=== PATIENT | male | born 1970 | race Caucasian/White ===

== ENCOUNTER 2019-02-24 19:15 | Emergency (ER) | payer MEDICAID ==
[~2019-02-24] VITALS: Ht 165.1 cm; Wt 114.0 kg
[2019-02-24] MEDS ORDERED: SODIUM CHLORIDE 0.9% 1,000 ML IV ONE ×2 (20:00→22:45)
[2019-02-24] MEDS ORDERED: INSULIN REGULAR (HUMULIN R) 300UNITS/3ML IV ONE (20:00)
[2019-02-24 20:14] LABS: BASOPHILS % 0.4 % (0.0-2.0); EOSINOPHILS % 3.8 % (0.0-5.0); HEMOGLOBIN. 13.6 g/dL (14.0-18.0); LYMPHOCYTES % 23.4 % (20.0-50.0); MEAN CORPUSCULAR HEMOGLOBIN 33.7 pg (28.0-32.0); MEAN CORPUSCULAR VOLUME 94.1 fL (80.0-94.0); MEAN PLATELET VOLUME 8.7 fl (7.4-10.4); MONOCYTES % 5.6 % (2.0-8.0); NEUTROPHILS % 66.8 % (40.0-76.0); PLATELET 199 x1000/uL (130-400); RED BLOOD CELL COUNT 4.04 mill/uL (4.7-6.1); RED CELL DISTRIBUTION WIDTH 12.6 % (11.6-14.6)
[2019-02-24] MEDS ORDERED: MORPHINE SULFATE 4 MG/ML CPJ (NOT FOR IM USE) IV ONE (20:15)
[2019-02-24 20:17] LABS: CHLORIDE 104 mEq/L (98-107)
[2019-02-24 20:19] LABS: INR 1.1; PROTHROMBIN TIME 10.9 sec (9.6-11.0)
[2019-02-24] MEDS ORDERED: INSULIN REGULAR (HUMULIN R) UD 100 UNITS/ML SYR IV ONE (22:45)
[2019-02-24] MEDS ORDERED: INSULIN REGULAR (HUMULIN R) 300UNITS/3ML IV NR (23:00)
[2019-02-25] MEDS ORDERED: TRAMADOL 50MG TABLET PO ONE
[2019-02-25 00:49] VITALS: BP 122/76
== END 2019-02-25 00:56 | disposition home or self-care (01) ==
LOC: ER 20:00
DX: F10.129 Alcohol abuse with intoxication, unspecified (principal); E10.65 Type 1 diabetes mellitus with hyperglycemia; N50.819 Testicular pain, unspecified; R03.0 Elevated blood-pressure reading, without diagnosis of hypertension; Y90.0 Blood alcohol level of less than 20 mg/100 ml; Z79.4 Long term (current) use of insulin
CPT/HCPCS: 36415; 80053; 80320; 82962; 83690; 85025; 85610; 96361; 96374; 96375; 96376; 99283; J1815; J2270; J7030; G0480

== ENCOUNTER 2020-02-12 12:54 | Emergency (ER) | payer MEDICAID ==
[~2020-02-12] VITALS: Ht 172.7 cm; Wt 113.0 kg
[2020-02-12 13:02] VITALS: BP 114/74
== END 2020-02-12 15:01 | disposition left against medical advice (07) ==
LOC: ER 12:54
DX: Z53.21 Procedure and treatment not carried out due to patient leaving prior to being seen by health care provider (principal)

== ENCOUNTER 2023-03-05 12:29 | Emergency (ER) | payer MEDICAID, OTHER ==
[~2023-03-05] VITALS: Ht 177.8 cm; Wt 104.0 kg
[2023-03-05 12:31] VITALS: O2SAT 99
[2023-03-05] MEDS ORDERED: FAMOTIDINE 20MG/2ML VIAL IV STA (12:52)
[2023-03-05] MEDS ORDERED: METOCLOPRAMIDE HCL 10MG/2ML VIAL IV STA (12:52)
[2023-03-05] MEDS ORDERED: SODIUM CHLORIDE 0.9% 1,000 ML IV ONE (13:00)
[2023-03-05 13:01] VITALS: BP 138/60; PULSE 101; RESP 19; TEMP 98.3
[2023-03-05 13:09] LABS: BASOPHILS % 0.8 % (0.0-2.0); EOSINOPHILS % 4.3 % (0.0-5.0); HEMATOCRIT. 25.2 % (42.0-52.0); HEMOGLOBIN. 8.7 g/dL (14.0-18.0); MEAN CORPUSCULAR HEMOGLOBIN 32.2 pg (28.0-32.0); MEAN CORPUSCULAR VOLUME 93.6 fL (80.0-94.0); MEAN PLATELET VOLUME 7.1 fl (7.4-10.4); MONOCYTES % 7.1 % (2.0-8.0); NEUTROPHILS % 58.8 % (40.0-76.0); PLATELET 219 x1000/uL (130-400); RED BLOOD CELL COUNT 2.69 mill/uL (4.7-6.1); RED CELL DISTRIBUTION WIDTH 13.4 % (11.6-14.6)
[2023-03-05 14:00] LABS: CHLORIDE 107 mEq/L (98-107)
== END 2023-03-05 14:00 | disposition left against medical advice (07) ==
LOC: ER 12:29
DX: F10.129 Alcohol abuse with intoxication, unspecified (principal); E78.00 Pure hypercholesterolemia, unspecified; E11.9 Type 2 diabetes mellitus without complications; Z98.890 Other specified postprocedural states; Y90.9 Presence of alcohol in blood, level not specified
CPT/HCPCS: 80053; 83690; 85025; 36415; 96361; 96374; 96375; 99284; J3490; J2765; J7030; Z7610

== ENCOUNTER 2023-11-14 18:10 | Emergency (ER) | payer OTHER ==
[~2023-11-14] VITALS: Ht 182.9 cm; Wt 113.0 kg
[~2023-11-14 18:10] MED LIST: ATOR40TA70 MT; CHOL400D7 PO; DIPH50DI IJ; DOCU-150 MT; EMPA25TA MT; FAMO20TA8 MT; FLUO20CA39 MT; GABA-532 MT; INSU3INS8 SUBCUT; METF-874 MT; NAPR-681 MT; TAMS-11 MT; TIRZ2.5P; TRAZ150T78 MT
[2023-11-14 18:19] VITALS: TEMP 97.8; O2SAT 99
[2023-11-14 19:51] LABS: BASOPHILS % 0.3 % (0.0-2.0); HEMOGLOBIN. 12.8 g/dL (14.0-18.0); LYMPHOCYTES % 17.3 % (20.0-50.0); MEAN CORPUSCULAR HEMOGLOBIN 30.3 pg (28.0-32.0); MEAN CORPUSCULAR HGB CONC 33.8 g/dL (31.0-37.0); MEAN CORPUSCULAR VOLUME 89.6 fL (80.0-94.0); MEAN PLATELET VOLUME 7.4 fl (7.4-10.4); MONOCYTES % 5.8 % (2.0-8.0); NEUTROPHILS % 74.6 % (40.0-76.0); PLATELET 245 x1000/uL (130-400); RED BLOOD CELL COUNT 4.24 mill/uL (4.7-6.1); WHITE BLOOD COUNT 7.5 x1000/uL (4.5-11.0)
[2023-11-14 20:06] LABS: ALANINE AMINOTRANSFERASE 13 IU/L (10-49); ALBUMIN 4.8 g/dL (3.2-4.8); ASPARTATE AMINOTRANSFERASE 15 IU/L (<34); BILIRUBIN TOTAL 0.4 mg/dL (0.1-1.0); CALCIUM 9.3 mg/dL (8.7-10.4); CARBON DIOXIDE 24 mEq/L (21-32); CHLORIDE 104 mEq/L (98-107); CREATININE 0.6 mg/dL (0.6-1.3); GLUCOSE 110 mg/dL (70-105); POTASSIUM 3.7 mEq/L (3.5-5.1); SODIUM 136 mEq/L (136-145); UREA NITROGEN BLOOD 16 mg/dL (9-23)
[2023-11-14] MEDS: MORPHINE SULFATE 4 MG/ML INJ (FOR IV/IM USE) IV ONE (20:07)
[2023-11-14 20:17] LABS: TROPONIN I HIGH SENSITIVITY < 4 ng/L (3.0-53)
[2023-11-15] MEDS: ONDANSETRON HCL 4MG/2ML INJ IV ONE (00:02)
[2023-11-15] MEDS: MORPHINE SULFATE 4 MG/ML INJ (FOR IV/IM USE) IV ONE (00:02)
[2023-11-15 00:15] VITALS: BP 99/79; PULSE 89; RESP 18
[2023-11-15] MEDS ORDERED: ACET-2708 MT (00:17)
== END 2023-11-15 00:15 | disposition home or self-care (01) ==
LOC: ER 18:10
DX: R14.0 Abdominal distension (gaseous) (principal); K40.90 Unilateral inguinal hernia, without obstruction or gangrene, not specified as recurrent; E11.9 Type 2 diabetes mellitus without complications; I10 Essential (primary) hypertension; F14.10 Cocaine abuse, uncomplicated; Z79.899 Other long term (current) drug therapy
CPT/HCPCS: 99291; 74177; 96374; 71045; 80053; 83880; 83605; 83690; 85025; 84484; 36415; 96375; 96376; J2405; J2270